=== PATIENT | male | born 1975 | race Caucasian/White ===

== ENCOUNTER 2024-01-29 00:12 | Inpatient (IN) | payer OTHER ==
[~2024-01-29] VITALS: Ht 177.8 cm; Wt 83.9 kg
[2024-01-29] MEDS ORDERED: ATROPINE SULFATE 1 MG/10 ML DISP.SYRIN ONE (00:54)
[2024-01-29] MEDS: ATROPINE SULFATE 1 MG/10 ML DISP.SYRIN IV ONE (00:58)
[2024-01-29 01:23] LABS: HEMOGLOBIN 15.1 g/dL (12.5-16.3); RED BLOOD CELL COUNT(AUTO) 4.84 MIL/uL (4.06-5.63); WHITE BLOOD COUNT (AUTO) 14.6 K/uL (3.6-10.2)
[2024-01-29 01:24] LABS: HEMATOCRIT 44.3 % (36.7-47.1); MEAN CORPUSCULAR HEMOGLOBIN 31.1 uug (23.8-33.4); MEAN CORPUSCULAR HGB CONC 34 g/dL (32.5-36.3); MEAN CORPUSCULAR VOLUME 91.5 fL (73.0-96.2); NEUTROPHILS % (AUTO) 89.7 % (38.5-71.5); PLATELET COUNT (AUTO) 307 K/uL (152-348); RED CELL DISTRIBUTION WIDTH 12.4 % (12.1-16.2)
[2024-01-29 01:25] LABS: BASOPHILS % (AUTO) 0.2 % (0.0-2.0)
[2024-01-29 01:26] LABS: MONOCYTES % (AUTO) 4.1 % (0.0-11.0)
[2024-01-29 01:27] LABS: EOSINOPHILS # (AUTO) 0.2 K/uL (0.0-0.7); LYMPHOCYTES # (AUTO) 0.7 K/uL (0.8-4.8); MONOCYTES # (AUTO) 0.6 K/uL (0.1-1.30); NEUTROPHILS # (AUTO) 13.1 K/uL (1.8-8.9)
[2024-01-29] MEDS ORDERED: CEFEPIME HCL 1 G VIAL ONE (01:37)
[2024-01-29] MEDS: CEFEPIME HCL 2 G in IV DEXTROSE 5% 100 ML IV ONE (01:51)
[2024-01-29 02:15] LABS: CALCIUM 8.4 mg/dL (8.5-10.1); CARBON DIOXIDE 30 mmol/L (21-32); CHLORIDE 103 mmol/L (98-107); GLUCOSE 140 mg/dL (74-106); POTASSIUM 3.8 mmol/L (3.5-5.1); SODIUM SERUM 141 mmol/L (136-145); UREA NITROGEN, BLOOD 21 mg/dL (7-18)
[2024-01-29 02:16] LABS: ALANINE AMINOTRANSFERASE 28 U/L (16-63); ALBUMIN 3.7 g/dL (3.4-5.0); ALKALINE PHOSPHATASE 52 U/L (50-136); ASPARTATE AMINOTRANSFERASE 21 U/L (15-37); BILIRUBIN,DIRECT 0.2 mg/dL (0.0-0.2); BILIRUBIN,TOTAL 0.9 mg/dL (0.2-1.0)
[2024-01-29 02:17] LABS: TOTAL PROTEIN, SERUM 7.9 g/dL (6.4-8.2)
[2024-01-29] MEDS ORDERED: ONDANSETRON 4 MG/2 ML VIAL IV PRN (05:00)
[2024-01-29] MEDS ORDERED: TEMAZEPAM 15 MG CAPSULE PO PRN (05:00)
[2024-01-29] MEDS ORDERED: ACETAMINOPHEN 325 MG TABLET PO PRN (05:00)
[2024-01-29] MEDS ORDERED: MAGNESIUM HYDROXIDE 30 ML LIQUID UDC PO PRN (05:00)
[2024-01-29] MEDS ORDERED: REMEDY ESSENTIAL ZINC PASTE 113 GM TP PRN (05:00)
[2024-01-29] MEDS: IV NORMAL SALINE 500 ML BAG IV ONE (06:38)
[2024-01-29 07:41] LABS: *BILIRUBIN,URIN NEGATIVE (NEGATIVE); *BLOOD, URINE NEGATIVE (NEGATIVE); *CLARITY,URINE CLEAR (CLEAR); *COLOR,URINE YELLOW (YELLOW); *KETONES,URINE NEGATIVE (NEGATIVE); *PROTEIN,URINE NEGATIVE (NEGATIVE); *UROBILINOGEN,URINE NORMAL (NORMAL); LEUKOCYTE ESTERASE ,URINE NEGATIVE (NEGATIVE); NITRITE, URINE NEGATIVE (NEGATIVE); UGLUCOSE NEGATIVE (NEGATIVE)
[2024-01-29 08:01] LABS: *AMPHETAMINE, URINE NEGATIVE (NEGATIVE); *BARBITURATE, URINE NEGATIVE (NEGATIVE); *BENZODIAZEPINE, URINE NEGATIVE (NEGATIVE); *CANNABINOID, URINE NEGATIVE (NEGATIVE); *COCCAINE, URINE NEGATIVE (NEGATIVE); *OPIATE, URINE NEGATIVE (NEGATIVE); *PHENCYCLIDINE SCREEN,URINE NEGATIVE (NEGATIVE); FENTANYL, URINE NEGATIVE (NEGATIVE)
[2024-01-29] MEDS: IV NORMAL SALINE 1000 ML BAG IV ONE (09:17)
[2024-01-29] MEDS: IV NS 1000 ML 1,000 ML IV PRN (11:00)
[2024-01-29] MEDS: PANTOPRAZOLE SODIUM 40 MG TABLET.DR PO SCH (11:03)
[2024-01-29 12:18] VITALS: BP 93/36; TEMP 98.9; O2SAT 97
[2024-01-29] MEDS: CEFEPIME HCL 1 G in IV DEXTROSE 5% 50 ML IV SCH (14:15)
[2024-01-29 17:08] VITALS: BP 96/45; TEMP 98.7; O2SAT 97
[2024-01-29 17:15] VITALS: BP 96/45
[2024-01-29 17:17] VITALS: BP 89/49; O2SAT 97
[2024-01-29 17:19] VITALS: BP 98/51; O2SAT 96
[2024-01-29 19:00] VITALS: BP 104/50; TEMP 98.5; O2SAT 95
[2024-01-30] VITALS: BP 106/51; TEMP 98; O2SAT 95
[2024-01-30 04:00] VITALS: BP 122/62; TEMP 98.3; O2SAT 95
[2024-01-30 06:57] LABS: BASOPHILS % (AUTO) 0.2 % (0.0-2.0); EOSINOPHILS # (AUTO) 0.3 K/uL (0.0-0.7); EOSINOPHILS % (AUTO) 4.5 % (0.0-7.0); HEMATOCRIT 34.6 % (36.7-47.1); LYMPHOCYTES # (AUTO) 1.4 K/uL (0.8-4.8); LYMPHOCYTES % (AUTO) 18.5 % (20.5-51.5); MEAN CORPUSCULAR HEMOGLOBIN 31.6 uug (23.8-33.4); MEAN CORPUSCULAR HGB CONC 35 g/dL (32.5-36.3); MEAN CORPUSCULAR VOLUME 91.2 fL (73.0-96.2); MONOCYTES # (AUTO) 0.7 K/uL (0.1-1.30); MONOCYTES % (AUTO) 9.1 % (0.0-11.0); NEUTROPHILS # (AUTO) 5.1 K/uL (1.8-8.9); NEUTROPHILS % (AUTO) 67.7 % (38.5-71.5); PLATELET COUNT (AUTO) 238 K/uL (152-348); RED BLOOD CELL COUNT(AUTO) 3.79 MIL/uL (4.06-5.63); RED CELL DISTRIBUTION WIDTH 12.7 % (12.1-16.2); WHITE BLOOD COUNT (AUTO) 7.6 K/uL (3.6-10.2)
[2024-01-30 07:08] LABS: DIFFERENTIAL COMMENT 1
[2024-01-30 07:13] LABS: CALCIUM 7.5 mg/dL (8.5-10.1); CREATININE 0.9 mg/dL (0.6-1.3); MAGNESIUM 2.1 mg/dL (1.8-2.4); PHOSPHOROUS 2.2 mg/dL (2.5-4.9); POTASSIUM 3.5 mmol/L (3.5-5.1)
[2024-01-30 07:26] LABS: THYROID STIMULATING HORMONE 0.691 mIU/mL (0.358-3.740)
[2024-01-30 07:38] VITALS: BP 108/57; TEMP 98.4; O2SAT 98
[2024-01-30 11:34] VITALS: BP 127/69; TEMP 98.4; O2SAT 99
[2024-01-30] MEDS: NEUTRA PHOS PACKET PO ONE (12:56)
[2024-01-30] MEDS ORDERED: CEFEPIME HCL 1 G in IV DEXTROSE 5% 50 ML IV SCH (14:00)
== END 2024-01-30 13:00 | disposition home or self-care (01) | DRG 48 ==
LOC: ER 00:16 → TELE3 09:42
PROVIDERS: ADMIT Nurse Practitioner Acute Care
DX: G90.89 Other disorders of autonomic nervous system (principal); D72.829 Elevated white blood cell count, unspecified; I95.1 Orthostatic hypotension; F17.290 Nicotine dependence, other tobacco product, uncomplicated; R00.1 Bradycardia, unspecified; R19.7 Diarrhea, unspecified; Z90.49 Acquired absence of other specified parts of digestive tract
CPT/HCPCS: 36415; 70450; 71045; 83605; 83735; 84100; 84443; 84484; 85025; 85730; 87040; 93307; A4606; A4663; G0378; J0461; J0692; J7040